=== PATIENT | male | born 1950 | race African-American/Black ===

== ENCOUNTER 2020-09-03 21:15 | Observation (INO) ==
[2020-09-03 21:38] LABS: White Blood Count 7.2 T/CUMM (4-12)
[2020-09-03 21:39] LABS: Basophils % 0.3 % (0.0-0.8); Eosinophils % 0.1 % (0.00-10.9); Hemoglobin 9.6 GM/DL (14.0-18.0); Immature Granulocytes % 0.6 %; Immature Granulocytes Absolute 0.04 #; Lymphocytes # 1.2 10*3/uL (1.4-4.0); Lymphocytes % 17.5 % (21.2-54.2); Mean Corpuscular HGB Conc 35.6 GM/DL (32-36); Mean Corpuscular Volume 74.8 FL (87-102); Monocytes % 9.6 % (1.7-12.7); Neutrophils % 71.9 % (38.7-73.9); Platelet Count 128 T/CUMM (130-400); Red Blood Count 3.61 MC/CUMM (3.8-5.5); Red Cell Distribution Width 17.9 % (9.3-17.3)
[2020-09-03 22:03] LABS: Burr Cells 1+; Platelet Estimate Decreased; Schistocytes Few
[2020-09-03 22:04] LABS: Hypochromasia 3+; Polychromasia Few; Target Cells 1+
[2020-09-03 22:05] LABS: Poikilocytosis 1+
[2020-09-03 22:26] LABS: Alanine Aminotransferase 35 U/L (16-61); Albumin 2.5 G/DL (3.4-5.0); Alkaline Phosphatase 170 U/L (45-117); Aspartate Amino Transferase 91 U/L (0-37); Blood Urea Nitrogen 23 MG/DL (7-18); Calcium 9.1 MG/DL (8.5-10.1); Carbon Dioxide 25 MMOL/L (21-32); Estimated Glom Filtration Rate 98 ML/MIN; Glucose 89 MG/DL (74-106); Osmolality,Calculated 281.4 MOS/KG (273-304); Potassium 3.8 MMOL/L (3.5-5.1); Sodium 140 MMOL/L (136-145); Total Protein 8.9 G/DL (6.4-8.2)
[2020-09-03 23:47] LABS: Bilirubin,Urine Negative (Negative); Blood, Urine Negative (Negative); Glucose,Urine (UA) Negative (Negative); Ketones,Urine Negative (Negative); Mucus,Urine Occasional /LPF (Occasional); Nitrite,Urine Negative (Negative); Protein,Urine Negative; RBC,Urine 3 /HPF (0-4); Squamous Epithelial Cell,Urine Occasional /HPF (0-10); Urine Appearance CLEAR (Clear); Urine Color Yellow (Yellow); Urine Specific Gravity 1.015 (1.001-1.035)
[2020-09-03 23:50] LABS: Barbiturates Screen,Urine Negative (Negative); Benzodiazepines Screen,Urine Negative (Negative); Cannabinoid Screen,Urine Negative (Negative); Opiate Screen,Urine Negative (Negative); Phencyclidine Screen,Urine Negative (Negative)
[2020-09-03] MEDS ORDERED: LORazepam 2 MG/1 ML VIAL IV STA (23:58)
[2020-09-03] MEDS ORDERED: HALOPERIDOL 5 MG/ML AMP IM STA (23:58)
[2020-09-03] MEDS ORDERED: HALOPERIDOL 5 MG/ML AMP ONE (23:59)
[2020-09-03] MEDS ORDERED: LORazepam 2 MG/1 ML VIAL ONE (23:59)
[2020-09-04] MEDS ORDERED: ONDANSETRON 4 MG/2 ML VIAL IV PRN (02:02)
[2020-09-04] MEDS ORDERED: GLUCAGON 1 MG VIAL IM PRN (02:02)
[2020-09-04] MEDS ORDERED: hydrALAZINE 20 MG/1 ML VIAL IV PRN (02:02)
[2020-09-04] MEDS ORDERED: DEXTROSE 50% 25 GM/50 ML VIAL IV PRN (02:02)
[2020-09-04] MEDS ORDERED: LACTULOSE 320 GM/480 ML BOTTLE RECTAL ONE ×2 (02:07→08:00)
[2020-09-04] MEDS ORDERED: ENOXAPARIN 40 MG/0.4 ML SYRINGE SUBCUT SCH (02:30)
[2020-09-04] MEDS ORDERED: ENOXAPARIN 60 MG/0.6 ML SYRINGE ONE (02:43)
[2020-09-04 06:19] LABS: Basophils % 0.3 % (0.0-0.8); Eosinophils # 0.1 10*3/uL (0.0-0.87); Eosinophils % 1.2 % (0.00-10.9); Hematocrit 23.8 VOL% (42.0-52.0); Hemoglobin 8.8 GM/DL (14.0-18.0); Immature Granulocytes % 0.3 %; Immature Granulocytes Absolute 0.02 #; Lymphocytes # 2.1 10*3/uL (1.4-4.0); Lymphocytes % 31.5 % (21.2-54.2); Monocytes % 12.1 % (1.7-12.7); Neutrophils % 54.6 % (38.7-73.9); Red Blood Count 3.26 MC/CUMM (3.8-5.5); Red Cell Distribution Width 17.3 % (9.3-17.3); White Blood Count 6.5 T/CUMM (4-12)
[2020-09-04 06:22] LABS: Platelet Count 87 T/CUMM (130-400)
[2020-09-04 06:36] LABS: Bilirubin,Total 2.9 MG/DL (0.20-1.00); Calcium 8.7 MG/DL (8.5-10.1); Potassium 3.6 MMOL/L (3.5-5.1); Total Protein 7.3 G/DL (6.4-8.2)
[2020-09-04 06:41] LABS: Hypochromasia 1+; Platelet Estimate Decreased
[2020-09-04 06:42] LABS: Target Cells Slight
[2020-09-04] MEDS: LACTULOSE 20 GM/30 ML UDCUP PO SCH ×3 (10:18→21:51)
[2020-09-04] MEDS: LACTULOSE 320 GM/480 ML BOTTLE RECTAL SCH ×2 (10:33→16:13)
[2020-09-04] MEDS: metroNIDAZOLE INJ 500 MG/100 ML PREMIX IV SCH ×3 (11:48→21:52)
[2020-09-05] MEDS: metroNIDAZOLE INJ 500 MG/100 ML PREMIX IV SCH ×2 (05:09→11:25)
[2020-09-05 06:04] LABS: Basophils % 0.4 % (0.0-0.8); Eosinophils # 0.1 10*3/uL (0.0-0.87); Eosinophils % 0.7 % (0.00-10.9); Hematocrit 23.1 VOL% (42.0-52.0); Hemoglobin 8.5 GM/DL (14.0-18.0); Immature Granulocytes % 0.5 %; Immature Granulocytes Absolute 0.04 #; Lymphocytes # 2.3 10*3/uL (1.4-4.0); Lymphocytes % 27.3 % (21.2-54.2); Mean Corpuscular HGB Conc 36.8 GM/DL (32-36); Monocytes % 13.4 % (1.7-12.7); Neutrophils % 57.7 % (38.7-73.9); Platelet Count 85 T/CUMM (130-400); Red Blood Count 3.08 MC/CUMM (3.8-5.5); Red Cell Distribution Width 17.4 % (9.3-17.3); White Blood Count 8.5 T/CUMM (4-12)
[2020-09-05 06:05] LABS: INR 1.4; PT Patient Result 15.1 SECS (10.5-12.0)
[2020-09-05 06:16] LABS: Hypochromasia 1+; Microcytosis 1+; Platelet Estimate Decreased
[2020-09-05 06:17] LABS: Target Cells Slight
[2020-09-05 06:19] LABS: Calcium 8.6 MG/DL (8.5-10.1); Osmolality,Calculated 292.6 MOS/KG (273-304); Potassium 3.7 MMOL/L (3.5-5.1)
[2020-09-05] MEDS: LACTATED RINGERS 1,000 ML IV SCH (12:45)
[2020-09-05] MEDS: LACTULOSE 20 GM/30 ML UDCUP PO SCH ×3 (14:00→21:53)
[2020-09-05] MEDS ORDERED: LIDOCAINE 2% 5 ML VIAL ONE (14:12)
[2020-09-05] MEDS ORDERED: propofoL 200 MG/20 ML VIAL IV ONE (14:12)
[2020-09-05] MEDS: SPIRONOLACTONE 50 MG TABLET PO SCH (16:22)
[2020-09-05] MEDS: RIFAXIMIN 550 MG TABLET PO SCH (21:54)
[2020-09-05] MEDS: PROPRANOLOL 20 MG TABLET PO SCH (21:54)
[2020-09-05] MEDS: FUROSEMIDE 40 MG TABLET PO SCH (21:54)
[2020-09-06 04:21] LABS: Basophils % 0.3 % (0.0-0.8); Eosinophils # 0.1 10*3/uL (0.0-0.87); Eosinophils % 1.6 % (0.00-10.9); Hematocrit 26.1 VOL% (42.0-52.0); Hemoglobin 9.1 GM/DL (14.0-18.0); Immature Granulocytes % 0.4 %; Immature Granulocytes Absolute 0.03 #; Lymphocytes # 1.6 10*3/uL (1.4-4.0); Lymphocytes % 22.5 % (21.2-54.2); Mean Corpuscular HGB Conc 34.9 GM/DL (32-36); Mean Corpuscular Volume 75.7 FL (87-102); Monocytes % 11.5 % (1.7-12.7); Neutrophils % 63.7 % (38.7-73.9); Platelet Count 100 T/CUMM (130-400); Red Blood Count 3.45 MC/CUMM (3.8-5.5); Red Cell Distribution Width 18.3 % (9.3-17.3)
[2020-09-06 04:49] LABS: Hypochromasia 1+; Microcytosis 1+; Platelet Estimate Decreased; Target Cells Few
[2020-09-06 04:58] LABS: Calcium 8.9 MG/DL (8.5-10.1); Osmolality,Calculated 283.1 MOS/KG (273-304); Potassium 4.2 MMOL/L (3.5-5.1)
[2020-09-06] MEDS: LACTATED RINGERS 1,000 ML IV SCH (07:00)
[2020-09-06] MEDS: FUROSEMIDE 40 MG TABLET PO SCH ×2 (08:06→08:11)
[2020-09-06] MEDS: RIFAXIMIN 550 MG TABLET PO SCH ×2 (08:06→08:11)
[2020-09-06] MEDS: PROPRANOLOL 20 MG TABLET PO SCH ×2 (08:06→08:11)
[2020-09-06] MEDS: SPIRONOLACTONE 50 MG TABLET PO SCH ×2 (08:06→08:11)
[2020-09-06] MEDS: LACTULOSE 20 GM/30 ML UDCUP PO SCH ×3 (08:07→14:29)
[2020-09-06 12:02] VITALS: BP 165/73
== END 2020-09-06 14:40 | disposition home or self-care (01) ==
LOC: EDBD → EDUNIT# → N.EDINP 21:15 → N.ED 21:15 → SUATTDRO 09-04 02:02 → N.TELEN 09-04 02:51
PROVIDERS: ADMIT Internal Medicine; ATTEND Hospitalist